=== PATIENT | female | born 2000 | race Hispanic/Latino ===

== ENCOUNTER 2021-05-31 14:28 | Emergency (ER) | payer MEDICAID ==
[2021-05-31 16:49] VITALS: BP 117/82
--- NOTE | 2021-05-31 17:03 | Event Note ---
ED Screening Note Date of service: 05/31/21 Time: 17:01 ED Screening Note: Patient presents to the ER today with complaints of syncope. Patient states that she passed out twice since yesterday. Presyncopal symptoms include dizziness, lightheadedness and generalized weakness. She reports periumbilical pain, mainly after her syncopal episodes as well as low back pain. Patient states that she recently returned from [place] 2 days ago. She states that her symptoms started in [place] 2 days before her flight to the she did pass out once in [place] with did not get evaluated. She states that she had been markable for 3 months. Patient reports no chest pain, shortness of breath, fever or chills. Her last menstrual cycle was in April 2021. She is not currently on any control. She denies any UTI symptoms. She denies any significant past medical history. This initial assessment/diagnostic orders/clinical plan/treatment(s) is/are subject to change based on patients health status, clinical progression and re- assessment by fellow clinical providers in the ED. Further treatment and workup at subsequent clinical providers discretion. Patient/guardian urged not to elope from the ED as their condition may be serious if not clinically assessed and managed. Initial orders include: Syncope order set
[2021-05-31 17:32] LABS: Bilirubin,Urine NEG (Negative); Blood,Urine NEG (Negative); Color,Urine Yellow (Yellow); Mucus,Urine FEW /HPF; Protein,Urine <15 mg/dL mg/dL (Negative)
[2021-05-31 17:42] LABS: Basophils % (Auto) 0.3 % (0.0-1.8); Eosinophils # (Auto) 0.1 K/mm3 (0.0-0.4); Eosinophils % (Auto) 1.6 % (0.0-4.3); Hematocrit 38.3 % (30.3-42.9); Hemoglobin 12.5 gm/dl (10.1-14.3); Lymphocytes # (Auto) 2.6 K/mm3 (1.2-5.4); Lymphocytes % (Auto) 34.1 % (13.4-35.0); Mean Corpuscular HGB Conc 33 % (30-34); Mean Corpuscular Volume 73 fl (79-97); Monocytes # (Auto) 0.8 K/mm3 (0.0-0.8); Monocytes % (Auto) 10.1 % (0.0-7.3); Platelet Count 313 K/mm3 (140-440); Red Blood Count 5.26 M/mm3 (3.65-5.03); Red Cell Distribution Width 18.5 % (13.2-15.2)
[2021-05-31 18:02] LABS: Alanine Aminotransferase 37 units/L (7-56); Albumin 3.9 g/dL (3.9-5); Blood Urea Nitrogen 7 mg/dL (7-17); Calcium 10.1 mg/dL (8.4-10.2); Hemolysis Index 6
[2021-05-31 18:06] LABS: BUN/Creatinine Ratio 18
[2021-05-31] MEDS ORDERED: FAMOTIDINE 20 MG/2 ML INJ IV ONE (21:27)
[2021-05-31] MEDS ORDERED: ONDANSETRON 4 MG/2 ML INJ IV ONE (21:27)
[2021-05-31] MEDS ORDERED: SODIUM CHLORIDE 0.9% 1000 ML 1,000 ML IV ONE (21:27)
--- NOTE | 2021-05-31 22:08 | XRay Report ---
CHEST 2 VIEWS INDICATION / CLINICAL INFORMATION: syncope, weakness. COMPARISON: None available. FINDINGS: SUPPORT DEVICES: None. HEART / MEDIASTINUM: No significant abnormality. LUNGS / PLEURA: No significant pulmonary or pleural abnormality. No pneumothorax. ADDITIONAL FINDINGS: No significant additional findings. IMPRESSION: 1. No acute findings. Signer Name: Michael Bustillo MD Signed: 05/31/2021 10:03 PM Workstation Name: [id number]
[2021-05-31 22:25] LABS: INR 0.95 (0.87-1.13)
[2021-05-31 22:26] LABS: Partial Thromboplastin Time 36.2 Sec. (24.2-36.6)
[2021-05-31] MEDS ORDERED: DICYCLOMINE 20 MG TAB PO ONE (22:28)
[2021-05-31] MEDS ORDERED: diphenhydrAMINE 50 MG/ML VIAL IV ONE (22:28)
--- NOTE | 2021-05-31 23:58 | Cat Scan Report ---
CT head without contrast INDICATION : Syncopal episode. TECHNIQUE: Axial imaging performed from the skull apex through the skull base without the use of con trast. All CT scans at this location are performed using CT dose reduction for ALARA by means of aut omated exposure control. COMPARISON: None FINDINGS: Parenchyma: No mass, stroke or hemorrhage. Ventricles: Ventricles are normal in size and appear symmetric. Soft tissues: Soft tissues including the orbits appear normal. Bones: No acute osseous abnormality. Sinuses: Sinuses and mastoid air cells are clear. IMPRESSION: No acute abnormality. Signer Name: Cesar Lopez MD Signed: 05/31/2021 11:54 PM Workstation Name: [id number]
--- NOTE | 2021-06-01 00:02 | Cat Scan Report ---
CTA CHEST WITH CONTRAST INDICATION / CLINICAL INFORMATION: Epigastric abdominal pain with elevated D-dimer. TECHNIQUE: Axial CT images were obtained through the chest after injection of Omnipaque 350, 100 cc I V contrast. 3 plane MIP and/or 3D reconstructions were produced. All CT scans at this location are pe rformed using CT dose reduction for ALARA by means of automated exposure control. COMPARISON: None available. FINDINGS: PULMONARY ARTERIES: No pulmonary emboli. THORACIC AORTA: No significant abnormality. HEART: No significant abnormality. CORONARY ARTERY CALCIFICATION: None. MEDIASTINUM / AV: No significant abnormality. PLEURA: No pleural effusion. No pneumothorax. LUNGS: No acute air space or interstitial disease. ADDITIONAL FINDINGS: None. UPPER ABDOMEN: No acute findings. SKELETAL STRUCTURES: No significant osseous abnormality. IMPRESSION: 1. No CT evidence for pulmonary embolism. 2. Negative for pneumonia. Signer Name: Cesar Lopez MD Signed: 05/31/2021 11:57 PM Workstation Name: [id number]
--- NOTE | 2021-06-01 00:06 | Cat Scan Report ---
CT ABDOMEN AND PELVIS WITH CONTRAST INDICATION / CLINICAL INFORMATION: Epigastric abdominal pain. TECHNIQUE: Axial CT images were obtained through the abdomen and pelvis after Omnipaque 350, 100 cc I V contrast. All CT scans at this location are performed using CT dose reduction for ALARA by means o f automated exposure control. COMPARISON: None available. FINDINGS: LOWER CHEST: No significant abnormality. LIVER: No significant abnormality. GALLBLADDER: No significant abnormality. BILE DUCTS: No significant abnormality. PANCREAS: No significant abnormality. SPLEEN: No significant abnormality. ADRENALS: No significant abnormality. RIGHT KIDNEY / URETER: No significant abnormality. LEFT KIDNEY / URETER: No significant abnormality. STOMACH / SMALL BOWEL: No significant abnormality. COLON: No significant abnormality. APPENDIX: No significant abnormality. PERITONEUM: No free fluid. No free air. No fluid collection. LYMPH NODES: No significant adenopathy. VASCULAR STRUCTURES: No significant abnormality. URINARY BLADDER: No significant abnormality. REPRODUCTIVE ORGANS: Small physiologic cyst left ovary. ADDITIONAL FINDINGS: None. SKELETAL SYSTEM: No significant abnormality. IMPRESSION: Negative for obstruction or localized inflammation. Signer Name: Cesar Lopez MD Signed: 06/01/2021 12:01 AM Workstation Name: [id number]
--- NOTE | 2021-06-01 00:42 | Emergency Department Report ---
ED Syncope HPI - General Chief Complaint: Syncope Stated Complaint: SYNCOPE EPISODE AT HOME Time Seen by Provider: 05/31/21 21:37 Source: patient, RN notes reviewed Exam Limitations: no limitations - History of Present Illness Initial Comments: This is a 21-year-old female nontoxic, well nourished in appearance, no acute signs of distress presents to the ED with c/o of dizziness, generalized weakness, and syncopal episode x 1 that occurred today. Patient stated symptoms has been intermittent since she was in [place] for the past 3 months. Patient returned from [place] 2 days ago. Patient stated has had also 1 episode yesterday. Stated has SOB and chest pain with abdominal pains during presyncopal episodes. Patient denies any headache or head trauma. Patient stated the dizziness is worsened with position change. Patient denies any numbness, tingling, headache, stiff neck, chest pain, shortness of breathe, numbness or tingling. Denies any visual changes or blurry vision. Denies any drug allergies. Timing/Prior Episodes: single episode today, recent history Precipitating Factors: Positive: lightheadedness. Negative: blurred vision, confusion, diaphoresis, injury, nausea, pain, recent head trauma, rapid heart beat Context: sitting, standing Loss of Consciousness: brief (seconds) Current Symptoms: back to normal. denies: blurred vision, chest pain, diaphoresis, dizziness, headache, injury, lightheadedness, loss of bladder con trol, loss of bowel control, motionless, nausea, pale, shallow/rapid breathing, weak/absent pulse, weakness - Related Data Allergies/Adverse Reactions: Allergies No Known Allergies Allergy (Unverified 05/31/21 16:49) Home Medications: Ambulatory Orders Meclizine [Antivert] 25 mg PO DAILY PRN #12 tablet 06/01/21 ED Review of Systems ROS: Stated complaint: SYNCOPE EPISODE AT HOME Other details as noted in HPI Comment: All other systems reviewed and negative Constitutional: denies: chills, fever Eyes: denies: eye pain, eye discharge, vision change ENT: denies: ear pain, throat pain Respiratory: denies: cough, shortness of breath, wheezing Cardiovascular: denies: chest pain, palpitations Endocrine: no symptoms reported Gastrointestinal: denies: abdominal pain, nausea, diarrhea Genitourinary: denies: urgency, dysuria, discharge Musculoskeletal: denies: back pain, joint swelling, arthralgia Skin: denies: rash, lesions Neurological: vertigo. denies: headache, weakness, numbness, paresthesias, confusion, abnormal gait Psychiatric: denies: anxiety, depression Hematological/Lymphatic: denies: easy bleeding, easy bruising ED Past Medical Hx - Past Medical History Previous Medical History?: No Additional medical history: denies - Surgical History Past Surgical History?: No Additional Surgical History: denies - Medications Home Medications: Home Medications Medication Instructions Recorded Confirmed Last Taken Type Meclizine [Antivert] 25 mg PO DAILY PRN #12 tablet 06/01/21 Unknown Rx ED Physical Exam - General Limitations: No Limitations General appearance: alert, in no apparent distress - Head Head exam: Present: atraumatic, normocephalic - Eye Eye exam: Present: normal appearance, PERRL, EOMI - ENT ENT exam: Present: normal exam, normal orophraynx - Neck Neck exam: Present: normal inspection, full ROM. Absent: tenderness, meningismus, lymphadenopathy - Respiratory Respiratory exam: Present: normal lung sounds bilaterally. Absent: respiratory distress, wheezes, rales, rhonchi, stridor, chest wall tenderness, accessory muscle use, decreased breath sounds, prolonged expiratory - Cardiovascular Cardiovascular Exam: Present: regular rate, normal rhythm, normal heart sounds. Absent: bradycardia, tachycardia, irregular rhythm, systolic murmur, diastolic murmur, rubs, gallop - GI/Abdominal GI/Abdominal exam: Present: soft, tenderness (upper abdominal area), normal bowel sounds. Absent: distended, guarding, rebound, rigid, diminished bowel sounds - Extremities Exam Extremities exam: Present: normal inspection, full ROM, normal capillary refill. Absent: tenderness, pedal edema, joint swelling, calf tenderness - Back Exam Back exam: Present: normal inspection, full ROM. Absent: tenderness, CVA tenderness (R), CVA tenderness (L), muscle spasm, paraspinal tenderness, vertebral tenderness, rash noted - Neurological Exam Neurological exam: Present: alert, oriented X3, normal gait - Expanded Neurological Exam Expanded Patient oriented to: Present: person, place, time Cranial nerves: EOM's Intact: Normal, Facial Sensation: Normal Cerebellar function: Finger to Nose: Normal Upper motor neuron: Pronator Drift: Normal, Sensory Extinction: Normal Motor strength exam: RUE: 5, LUE: 5, RLE: 5, LLE: 5 Best Eye Response ([place]): (4) open spontaneously Best Motor Response (Davy): (6) obeys commands Best Verbal Response (Davy): (5) oriented Davy Total: 15 - Psychiatric Psychiatric exam: Present: normal affect, normal mood - Skin Skin exam: Present: warm, dry, intact, normal color. Absent: rash - Other Other exam information: No carotid bruit. No jugular vein distention. ED Course Vital Signs 05/31/21 16:48 Temperature 98.4 F Pulse Rate 97 H Respiratory 16 Rate Blood Pressure 117/82 O2 Sat by Pulse 99 Oximetry - Reevaluation(s) Reevaluation #1: 06/01/21 00:44 Patient is speaking in full sentences with no signs of distress noted. ED Medical Decision Making - Lab Data Result diagrams: 05/31/21 17:26 05/31/21 17:26 Lab Results 05/31/21 05/31/21 05/31/21 Range/Units 17:26 17:26 17:26 WBC 7.7 (4.5-11.0) K/mm3 RBC 5.26 H (3.65-5.03) M/mm3 Hgb 12.5 (10.1-14.3) gm/dl Hct 38.3 (30.3-42.9) % MCV 73 L (79-97) fl MCH 24 L (28-32) pg MCHC 33 (30-34) % RDW 18.5 H (13.2-15.2) % Plt Count 313 (140-440) K/mm3 Lymph % (Auto) 34.1 (13.4-35.0) % [place] % (Auto) 10.1 H (0.0-7.3) % Eos % (Auto) 1.6 (0.0-4.3) % Baso % (Auto) 0.3 (0.0-1.8) % Lymph # (Auto) 2.6 (1.2-5.4) K/mm3 [place] # (Auto) 0.8 (0.0-0.8) K/mm3 Eos # (Auto) 0.1 (0.0-0.4) K/mm3 Baso # (Auto) 0.0 (0.0-0.1) K/mm3 Seg Neutrophils % 53.9 (40.0-70.0) % Seg Neutrophils # 4.1 (1.8-7.7) K/mm3 PT (12.2-14.9) Sec. INR (0.87-1.13) APTT (24.2-36.6) Sec. D-Dimer (0-234) ng/mlDDU Sodium 139 (137-145) mmol/L Potassium 4.0 (3.6-5.0) mmol/L Chloride 102.5 (98-107) mmol/L Carbon Dioxide 22 (22-30) mmol/L Anion Gap 19 mmol/L BUN 7 (7-17) mg/dL Creatinine 0.4 L (0.6-1.2) mg/dL Estimated GFR > 60 ml/min BUN/Creatinine Ratio 18 % Glucose 92 (65-100) mg/dL Calcium 10.1 (8.4-10.2) mg/dL Magnesium 2.20 (1.7-2.3) mg/dL Total Bilirubin 0.30 (0.1-1.2) mg/dL AST 16 (5-40) units/L ALT 37 (7-56) units/L Alkaline Phosphatase 99 (35-129) units/L Troponin T < 0.010 (0.00-0.029) ng/mL Total Protein 8.6 H (6.3-8.2) g/dL Albumin 3.9 (3.9-5) g/dL Albumin/Globulin Ratio 0.8 % HCG, Qual Negative (Negative) Urine Color (Yellow) Urine Turbidity (Clear) Urine pH (5.0-7.0) Ur Specific Veteran (1.003-1.030) Urine Protein (Negative) mg/dL Urine Glucose (UA) (Negative) mg/dL Urine Ketones (Negative) mg/dL Urine Blood (Negative) Urine Nitrite (Negative) Urine Bilirubin (Negative) Urine Urobilinogen (<2.0) mg/dL Ur Leukocyte Esterase (Negative) Urine WBC (Auto) (0.0-6.0) /HPF Urine RBC (Auto) (0.0-6.0) /HPF U Epithel Cells (Auto) (0-13.0) /HPF Urine Mucus /HPF 09/10/2005/31/21 05/31/21 Range/Units 22:00 22:00 Unknown WBC (4.5-11.0) K/mm3 RBC (3.65-5.03) M/mm3 Hgb (10.1-14.3) gm/dl Hct (30.3-42.9) % MCV (79-97) fl MCH (28-32) pg MCHC (30-34) % RDW (13.2-15.2) % Plt Count (140-440) K/mm3 Lymph % (Auto) (13.4-35.0) % [place] % (Auto) (0.0-7.3) % Eos % (Auto) (0.0-4.3) % Baso % (Auto) (0.0-1.8) % Lymph # (Auto) (1.2-5.4) K/mm3 [place] # (Auto) (0.0-0.8) K/mm3 Eos # (Auto) (0.0-0.4) K/mm3 Baso # (Auto) (0.0-0.1) K/mm3 Seg Neutrophils % (40.0-70.0) % Seg Neutrophils # (1.8-7.7) K/mm3 PT 13.3 (12.2-14.9) Sec. INR 0.95 (0.87-1.13) APTT 36.2 (24.2-36.6) Sec. D-Dimer 352.35 H (0-234) ng/mlDDU Sodium (137-145) mmol/L Potassium (3.6-5.0) mmol/L Chloride (98-107) mmol/L Carbon Dioxide (22-30) mmol/L Anion Gap mmol/L BUN (7-17) mg/dL Creatinine (0.6-1.2) mg/dL Estimated GFR ml/min BUN/Creatinine Ratio % Glucose (65-100) mg/dL Calcium (8.4-10.2) mg/dL Magnesium 2.10 (1.7-2.3) mg/dL Total Bilirubin (0.1-1.2) mg/dL AST (5-40) units/L ALT (7-56) units/L Alkaline Phosphatase (35-129) units/L Troponin T < 0.010 (0.00-0.029) ng/mL Total Protein (6.3-8.2) g/dL Albumin (3.9-5) g/dL Albumin/Globulin Ratio % HCG, Qual (Negative) Urine Color Yellow (Yellow) Urine Turbidity Clear (Clear) Urine pH 6.0 (5.0-7.0) Ur Specific Veteran 1.016 (1.003-1.030) Urine Protein <15 mg/dl (Negative) mg/dL Urine Glucose (UA) Neg (Negative) mg/dL Urine Ketones Neg (Negative) mg/dL Urine Blood Neg (Negative) Urine Nitrite Neg (Negative) Urine Bilirubin Neg (Negative) Urine Urobilinogen 2.0 (<2.0) mg/dL Ur Leukocyte Esterase Tr (Negative) Urine WBC (Auto) 1.0 (0.0-6.0) /HPF Urine RBC (Auto) 1.0 (0.0-6.0) /HPF U Epithel Cells (Auto) 2.0 (0-13.0) /HPF Urine Mucus Few /HPF - EKG Data 06/01/21 00:48 Normal sinus rhythm at [address] or T wave abnormalities. Reviewed and signed by . - Radiology Data [facility] [address] [place] [address] Cat Scan Report Signed Patient: MOON RUIZ MR#: [id number] [birth year] : 2000 Acct:[id number] Age/Sex: 21 / F ADM Date: 05/31/21 Loc: ED Attending Dr: Ordering Physician: GRACE ENCISO NP Date of Service: 05/31/21 Procedure(s): CT angio chest Accession Number(s): [id number] cc: GRACE ENCISO NP CTA CHEST WITH CONTRAST INDICATION / CLINICAL INFORMATION: Epigastric abdominal pain with elevated D-dimer. TECHNIQUE: Axial CT images were obtained through the chest after injection of Omnipaque 350, 100 cc IV contrast. 3 plane MIP and/or 3D reconstructions were produced. All CT scans at this location are performed using CT dose reduction for ALARA by means of automated exposure control. COMPARISON: None available. FINDINGS: PULMONARY ARTERIES: No pulmonary emboli. THORACIC AORTA: No significant abnormality. HEART: No significant abnormality. CORONARY ARTERY CALCIFICATION: None. MEDIASTINUM / AV: No significant abnormality. PLEURA: No pleural effusion. No pneumothorax. LUNGS: No acute air space or interstitial disease. ADDITIONAL FINDINGS: None. UPPER ABDOMEN: No acute findings. SKELETAL STRUCTURES: No significant osseous abnormality. IMPRESSION: 1. No CT evidence for pulmonary embolism. 2. Negative for pneumonia. Signer Name: Cesar Lopez MD Signed: 05/31/2021 11:57 PM Workstation Name: [id number] Transcribed By: ES Dictated By: Cesar Lopez MD Electronically Authenticated By: Cesar Lopez MD Signed Date/Time: 05/31/212356 DD/ 54 TD/TT: [facility] [address] [place] [address] Cat Scan Report Signed Patient: MOON RUIZ MR#: [id number] [birth year] : 2000 Acct:[id number] Age/Sex: 21 / F ADM Date: 05/31/21 Loc: ED Attending Dr: Ordering Physician: GRACE ENCISO NP Date of Service: 05/31/21 Procedure(s): CT abdomen pelvis w con Accession Number(s): [id number] cc: GRACE ENCISO NP CT ABDOMEN AND PELVIS WITH CONTRAST INDICATION / CLINICAL INFORMATION: Epigastric abdominal pain. TECHNIQUE: Axial CT images were obtained through the abdomen and pelvis after Omnipaque 350, 100 cc IV contrast. All CT scans at this location are performed using CT dose reduction for ALARA by means of automated exposure control. COMPARISON: None available. FINDINGS: LOWER CHEST: No significant abnormality. LIVER: No significant abnormality. GALLBLADDER: No significant abnormality. BILE DUCTS: No significant abnormality. PANCREAS: No significant abnormality. SPLEEN: No significant abnormality. ADRENALS: No significant abnormality. RIGHT KIDNEY / URETER: No significant abnormality. LEFT KIDNEY / URETER: No significant abnormality. STOMACH / SMALL BOWEL: No significant abnormality. COLON: No significant abnormality. APPENDIX: No significant abnormality. PERITONEUM: No free fluid. No free air. No fluid collection. LYMPH NODES: No significant adenopathy. VASCULAR STRUCTURES: No significant abnormality. URINARY BLADDER: No significant abnormality. REPRODUCTIVE ORGANS: Small physiologic cyst left ovary. ADDITIONAL FINDINGS: None. SKELETAL SYSTEM: No significant abnormality. IMPRESSION: Negative for obstruction or localized inflammation. Signer Name: Cesar Lopez MD Signed: 06/01/2021 12:01 AM Workstation Name: [id number] Transcribed By: DOLORES Dictated By: Cesar Lopez MD Electronically Authenticated By: Cesar Lopez MD Signed Date/Time: 06/01/212356 DD/ TD/TT: [address] [address] Cat Scan Report Signed Patient: MOON RUIZ MR#: [id number] [birth year] : 2000 Acct:[id number] Age/Sex: 21 / F ADM Date: 05/31/21 Loc: ED Attending Dr: Ordering Physician: GRACE ENCISO NP Date of Service: 05/31/21 Procedure(s): CT head/brain wo con Accession Number(s): [id number] cc: GRACE ENCISO NP CT head without contrast INDICATION : Syncopal episode. TECHNIQUE: Axial imaging performed from the skull apex through the skull base without the use of contrast. All CT scans at this location are performed using CT dose reduction for ALARA by means of automated exposure control. COMPARISON: None FINDINGS: Parenchyma: No mass, stroke or hemorrhage. Ventricles: Ventricles are normal in size and appear symmetric. Soft tissues: Soft tissues including the orbits appear normal. Bones: No acute osseous abnormality. Sinuses: Sinuses and mastoid air cells are clear. IMPRESSION: No acute abnormality. Signer Name: Cesar Lopez MD Signed: 05/31/2021 11:54 PM Workstation Name: [id number] Transcribed By: DOLORES Dictated By: Cesar Lopez MD Electronically Authenticated By: Cesar Lopez MD Signed Date/Time: 05/31/212353 DD/ 49 TD/TT: [address] [address] XRay Report Signed Patient: MOON RUIZ MR#: [id number] [birth year] : 2000 Acct:[id number] Age/Sex: 21 / F ADM Date: 05/31/21 Loc: ED Attending Dr: Clarence lopez Physician: BEKAH MEJIA Date of Service: 05/31/21 Procedure(s): XR chest routine 2V Accession Number(s): [id number] cc: BEKAH MEJIA Fluoro Time In Minutes: CHEST 2 VIEWS INDICATION / CLINICAL INFORMATION: syncope, weakness. COMPARISON: None available. FINDINGS: SUPPORT DEVICES: None. HEART / MEDIASTINUM: No significant abnormality. LUNGS / PLEURA: No significant pulmonary or pleural abnormality. No pneumothorax. ADDITIONAL FINDINGS: No significant additional findings. IMPRESSION: 1. No acute findings. Signer Name: Michael Bustillo MD Signed: 05/31/2021 10:03 PM Workstation Name: [id number] Transcribed By: SB Dictated By: MICHAEL BUSTILLO MD Electronically Authenticated By: MICHAEL BUSTILLO MD Signed Date/Time: 05/31/212202 DD/ 02 TD/TT: - Medical Decision Making This is a 21-year-old female that presents with dizziness, syncope, elevated d- dimmer, and abdominal pains. Patient is stable and was examined by me. EKG is normal sinus rhythm with no ST abnormalities. Labs are unremarkable. Urine obtained. Orthostatic vital signs obtained and within normal limits. Patient received 1 L of normal saline which she stated his symptoms of dizziness has subsided and resolved. Patient is neurologically stable. Patient is notified of the imagining results with no questions noted by the patient. Patient was instructed to Follow-up with a primary care doctor in 3-5 days or if symptoms worsen and continue return to emergency room as soon as possible. At time of discharge, the patient does not seem toxic or ill in appearance. No acute signs of distress noted. Patient agrees to discharge treatment plan of care. No f urther questions noted by the patient. Critical care attestation.: If time is entered above; I have spent that time in minutes in the direct care of this critically ill patient, excluding procedure time. ED Disposition Clinical Impression: Syncopal episodes, Dizziness, Abdominal pain of unknown cause, Elevated d-dimer Disposition: HOME / SELF CARE / HOMELESS Is pt being admited?: No Does the pt Need Aspirin: No Condition: Stable Instructions: Abdominal Pain, Adult, Dizziness, Giff-kg-Xyen, Syncope (ED) Additional Instructions: Follow-up with a primary care doctor in 3-5 days or if symptoms worsen and continue return to emergency room as soon as possible. Prescriptions: Meclizine [Antivert] 25 mg PO DAILY PRN #12 tablet PRN Reason: Vertigo Referrals: NORAH LIVINGSTON MD [Primary Care Provider] - 3-5 Days PRIMARY CAREMD [Referring] - 3-5 Days JACOB PENN MD [Staff Physician] - 3-5 Days Forms: Work/School Release Form(ED) Time of Disposition: 00:51
--- NOTE | 2021-06-01 10:14 | Electrocardiograph Report ---
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
== END 2021-06-01 01:00 | disposition home or self-care (01) ==
LOC: ED 14:28
DX: R55 Syncope and collapse (principal); R42 Dizziness and giddiness; R10.9 Unspecified abdominal pain; R79.1 Abnormal coagulation profile
CPT/HCPCS: 36415; 70450; 71046; 71275; 74177; 80053; 81001; 83735; 84484; 84703; 85025; 85379; 85610; 85730; 93005; 96361; 96374; 96375; 99284; J1200; J2405; J7030; Q9967

== ENCOUNTER 2021-07-28 18:40 | Emergency (ER) | payer MEDICAID ==
[2021-07-28] MEDS ORDERED: NEOMY 3.5 MG/BACIT 400 UNITS/POLY B 5000 UNITS/GM OINT PACKET TP ONE (19:02)
[2021-07-28] MEDS ORDERED: TETANUS,DIPH,PERTUSS(ACELL) VACCINE 0.5 ML SYRINGE IM ONE (19:02)
--- NOTE | 2021-07-28 19:13 | Emergency Department Report ---
- General Chief Complaint: Wound/Laceration Stated Complaint: LEFT HAND INJURY Time Seen by Provider: 07/28/21 18:59 Source: patient Mode of arrival: Ambulatory Limitations: No Limitations - History of Present Illness Initial Comments: Patient is a 21-year-old female presents emergency with complaints of a left hand injury that occurred prior to arrival. Patient states that she was helping to move a dresser. She states that the person on the other side let go of the dresser and that she had to take all of the way onto her hand and when she pulled away it cut the hand. She is unsure of her last tetanus immunization. She states that she still able to move the digits in the hand. She denies any numbness or weakness. No past medical history. No allergies to medications. - Related Data Previous Rx's Medication Instructions Recorded Last Taken Type Meclizine [Antivert] 25 mg PO DAILY PRN #12 tablet 06/01/21 Unknown Rx Mupirocin [Bactroban 2% OINT] 1 applic TP TID #1 tube 07/28/21 Unknown Rx cephALEXin [Keflex] 500 mg PO QID 7 Days #28 cap 07/28/21 Unknown Rx Allergies Allergy/AdvReac Type Severity Reaction Status Date / Time No Known Allergies Allergy Unverified 05/31/21 16:49 ED Review of Systems ROS: Stated complaint: LEFT HAND INJURY Other details as noted in HPI Comment: All other systems reviewed and negative ED Past Medical Hx - Past Medical History Previous Medical History?: No Additional medical history: denies - Surgical History Past Surgical History?: No Additional Surgical History: denies - Medications Home Medications: Home Medications Medication Instructions Recorded Confirmed Last Taken Type Meclizine [Antivert] 25 mg PO DAILY PRN #12 tablet 06/01/21 Unknown Rx Mupirocin [Bactroban 2% OINT] 1 applic TP TID #1 tube 07/28/21 Unknown Rx cephALEXin [Keflex] 500 mg PO QID 7 Days #28 cap 07/28/21 Unknown Rx ED Physical Exam - General Limitations: No Limitations General appearance: alert, in no apparent distress - Head Head exam: Present: atraumatic, normocephalic - Eye Eye exam: Present: normal appearance - ENT ENT exam: Present: mucous membranes moist - Extremities Exam Extremities exam: Present: other (skin avulsion present to the palmar surface of the left hand of the ring finger and middle finger, mild ttp of the digits, FROM of the wrist, hand, and digits, neurovascularly intact) - Neurological Exam Neurological exam: Present: alert, oriented X3 - Psychiatric Psychiatric exam: Present: normal affect, normal mood - Skin Skin exam: Present: warm, dry ED Course Vital Signs 07/28/21 07/28/21 07/28/21 18:45 19:06 20:25 Temperature 98.0 F Pulse Rate 102 H 107 H 112 H Respiratory 18 17 Rate Blood Pressure 130/87 196/123 139/85 O2 Sat by Pulse 100 97 99 Oximetry ED Medical Decision Making - Radiology Data Radiology results: report reviewed Ordering Physician: BEKAH OTOOLE Date of Service: 07/28/21 Procedure(s): XR hand 3+V RT Accession Number(s): [id number] cc: BEKAH OTOOLE Fluoro Time In Minutes: RIGHT HAND 3 VIEW(S) INDICATION / CLINICAL INFORMATION: smashed hand while moving dresser, skin avulsion COMPARISON: None available. FINDINGS: BONES / JOINT(S): No acute fracture or subluxation. No significant arthritis. SOFT TISSUES: No significant abnormality. ADDITIONAL FINDINGS: None. Signer Name: Hector Hale MD Signed: 07/28/2021 7:29 PM Workstation Name: [id number] Transcribed By: SS Dictated By: Hector Hale MD Electronically Authenticated By: Hector Hale MD Signed Date/Time: 07/28/211928 DD/ 26 TD/TT: Print - Medical Decision Making Patient is a 21-year-old female presents emergency with complaints of a left hand injury that occurred prior to arrival. Patient states that she was helping to move a dresser. She states that the person on the other side let go of the dresser and that she had to take all of the way onto her hand and when she pulled away it cut the hand. She is unsure of her last tetanus immunization. She states that she still able to move the digits in the hand. She denies any numbness or weakness. No past medical history. No allergies to medications. on exam:skin avulsion present to the palmar surface of the left hand of the ring finger and middle finger, mild ttp of the digits, FROM of the wrist, hand, and digits, neurovascularly intact. X-ray right hand: BONES / JOINT(S): No acute fracture or subluxation. No significant arthritis. SOFT TISSUES: No significant abnormality. ADDITIONAL FINDINGS: None. Unable to repair, there is skin avulsion present, no muscle or tendon involvement, only involves the skin layer, no foreign bodies. Wound care performed by nurse and antibiotic ointment and nonstick dressing placed. Discussed all results with patient. Advised patient Please use medication as prescribed. Please keep area clean, dry, covered. Wash with antibacterial soap and water pat dry. No hot tub, no pool. Showering is fine. Follow-up with a primary care doctor to have area reexamined. Return to emergency room immediately for any new or worsening symptoms. Critical care attestation.: If time is entered above; I have spent that time in minutes in the direct care of this critically ill patient, excluding procedure time. ED Disposition Clinical Impression: Skin avulsion Disposition: HOME / SELF CARE / HOMELESS Is pt being admited?: No Does the pt Need Aspirin: No Condition: Stable Instructions: Deep Skin Avulsion Additional Instructions: Please use medication as prescribed. Please keep area clean, dry, covered. Wash with antibacterial soap and water pat dry. No hot tub, no pool. Showering is fine. Follow-up with a primary care doctor to have area reexamined. Return to emergency room immediately for any new or worsening symptoms. Prescriptions: Mupirocin [Bactroban 2% OINT] 1 applic TP TID #1 tube cephALEXin [Keflex] 500 mg PO QID 7 Days #28 cap Referrals: JACOB PENN MD [Staff Physician] - 3-5 Days [facility] [Provider Group] - 3-5 Days Forms: Work/School Release Form(ED) Time of Disposition: 20:00 Print Language: [place]
--- NOTE | 2021-07-28 19:33 | XRay Report ---
RIGHT HAND 3 VIEW(S) INDICATION / CLINICAL INFORMATION: smashed hand while moving dresser, skin avulsion COMPARISON: None available. FINDINGS: BONES / JOINT(S): No acute fracture or subluxation. No significant arthritis. SOFT TISSUES: No significant abnormality. ADDITIONAL FINDINGS: None. Signer Name: Hector Hale MD Signed: 07/28/2021 7:29 PM Workstation Name: [id number]
[2021-07-28 20:28] VITALS: BP 139/85
== END 2021-07-28 20:42 | disposition home or self-care (01) ==
LOC: ED 18:40
DX: S61.402A Unspecified open wound of left hand, initial encounter (principal); X58.XXXA Exposure to other specified factors, initial encounter; Y93.89 Activity, other specified; Y92.89 Other specified places as the place of occurrence of the external cause; Y99.8 Other external cause status
CPT/HCPCS: 73130; 90471; 90715; 99283; A6250

== ENCOUNTER 2021-07-29 01:54 | Emergency (ER) | payer MEDICAID ==
[2021-07-29] MEDS ORDERED: SODIUM CHLORIDE 0.9% 1000 ML 1,000 ML IV ONE (02:33)
[2021-07-29 03:53] LABS: Basophils % (Auto) 0.5 % (0.0-1.8); Eosinophils # (Auto) 0.2 K/mm3 (0.0-0.4); Eosinophils % (Auto) 4.2 % (0.0-4.3); Hematocrit 34.1 % (30.3-42.9); Hemoglobin 11.1 gm/dl (10.1-14.3); Lymphocytes # (Auto) 1.2 K/mm3 (1.2-5.4); Lymphocytes % (Auto) 21.8 % (13.4-35.0); Mean Corpuscular HGB Conc 33 % (30-34); Mean Corpuscular Volume 73 fl (79-97); Monocytes # (Auto) 0.4 K/mm3 (0.0-0.8); Monocytes % (Auto) 8.1 % (0.0-7.3); Platelet Count 294 K/mm3 (140-440); Red Blood Count 4.65 M/mm3 (3.65-5.03); Red Cell Distribution Width 16.8 % (13.2-15.2)
[2021-07-29 04:50] LABS: Alanine Aminotransferase 12 units/L (7-56); Blood Urea Nitrogen 9 mg/dL (7-17); Calcium 8.5 mg/dL (8.4-10.2); Hemolysis Index 6
[2021-07-29 04:52] LABS: BUN/Creatinine Ratio 23
[2021-07-29 04:59] LABS: Bilirubin,Urine NEG (Negative); Blood,Urine LG (Negative); Color,Urine Yellow (Yellow); Protein,Urine <15 mg/dL mg/dL (Negative)
--- NOTE | 2021-07-29 05:35 | Emergency Department Report ---
ED Dizziness HPI - General Chief Complaint: Dizziness Stated Complaint: LIGHT HEADED Source: patient Mode of arrival: Ambulatory Limitations: No Limitations - History of Present Illness MD Complaint: lightheadedness, near syncope, other (right hand laceration and heavy vaginal bleeding) -: Sudden, hour(s) (2) Timing: sudden onset, constant, waxing/waning Description: "room spinning", lightheadedness, near-syncope History of Same: No History of Trauma: No Severity: mild Improves With: rest Worsens With: movement Associated Symptoms: denies other symptoms, malaise. denies: ataxia, chest pain, cough, diaphoresis, fever/chills, loss of appetite, rash, seizure, shortness of breath, syncope, weakness, other - Related Data Previous Rx's Medication Instructions Recorded Last Taken Type Meclizine [Antivert] 25 mg PO DAILY PRN #12 tablet 06/01/21 Unknown Rx Mupirocin [Bactroban 2% OINT] 1 applic TP TID #1 tube 07/28/21 Unknown Rx cephALEXin [Keflex] 500 mg PO QID 7 Days #28 cap 07/28/21 Unknown Rx Allergies Allergy/AdvReac Type Severity Reaction Status Date / Time No Known Allergies Allergy Unverified 05/31/21 16:49 ED Review of Systems ROS: Stated complaint: LIGHT HEADED Other details as noted in HPI Constitutional: denies: chills, fever, weakness Eyes: denies: eye pain, eye discharge, vision change ENT: denies: ear pain, throat pain, congestion Respiratory: denies: cough, shortness of breath, wheezing Cardiovascular: other (lightheadedness). denies: chest pain, palpitations Endocrine: no symptoms reported Gastrointestinal: denies: abdominal pain, nausea, vomiting, diarrhea Genitourinary: denies: urgency, dysuria, discharge Musculoskeletal: denies: back pain, joint swelling, arthralgia Skin: denies: rash, lesions Neurological: other (lightheadedness). denies: headache, weakness, paresthesias Psychiatric: anxiety. denies: depression Hematological/Lymphatic: denies: easy bleeding, easy bruising ED Past Medical Hx - Past Medical History Previous Medical History?: No Additional medical history: denies - Surgical History Past Surgical History?: No Additional Surgical History: denies - Medications Home Medications: Home Medications Medication Instructions Recorded Confirmed Last Taken Type Meclizine [Antivert] 25 mg PO DAILY PRN #12 tablet 06/01/21 Unknown Rx Mupirocin [Bactroban 2% OINT] 1 applic TP TID #1 tube 07/28/21 Unknown Rx cephALEXin [Keflex] 500 mg PO QID 7 Days #28 cap 07/28/21 Unknown Rx ED Physical Exam - General Limitations: No Limitations General appearance: alert, in no apparent distress - Head Head exam: Present: atraumatic, normocephalic, normal inspection - Eye Eye exam: Present: normal appearance, PERRL, EOMI Pupils: Present: normal accommodation - ENT ENT exam: Present: normal exam, normal orophraynx, mucous membranes moist, TM's normal bilaterally, normal external ear exam - Neck Neck exam: Present: normal inspection, full ROM - Respiratory Respiratory exam: Present: normal lung sounds bilaterally. Absent: respiratory distress, wheezes, rales, rhonchi, chest wall tenderness, accessory muscle use, decreased breath sounds, prolonged expiratory - Cardiovascular Cardiovascular Exam: Present: normal rhythm, tachycardia, normal heart sounds. Absent: systolic murmur, diastolic murmur, rubs, gallop - GI/Abdominal GI/Abdominal exam: Present: soft, normal bowel sounds. Absent: tenderness, guarding, rebound, hyperactive bowel sounds, hypoactive bowel sounds, organomegaly - Extremities Exam Extremities exam: Present: normal inspection, full ROM, normal capillary refill - Back Exam Back exam: Present: normal inspection, full ROM. Absent: tenderness, CVA tenderness (R), CVA tenderness (L), muscle spasm, paraspinal tenderness, vertebral tenderness - Neurological Exam Neurological exam: Present: alert, oriented X3, CN II-XII intact, normal gait, reflexes normal - Psychiatric Psychiatric exam: Present: normal affect, normal mood, anxious - Skin Skin exam: Present: warm, dry, intact, normal color. Absent: rash ED Course Vital Signs 07/29/21 02:04 Temperature 98.9 F Pulse Rate 108 H Respiratory 18 Rate Blood Pressure 132/83 O2 Sat by Pulse 99 Oximetry ED Medical Decision Making - Lab Data Result diagrams: 07/29/21 03:01 07/29/21 03:01 - Differential Diagnosis lightheadedness; dizziness; dehydration; Critical care attestation.: If time is entered above; I have spent that time in minutes in the direct care of this critically ill patient, excluding procedure time. ED Disposition Clinical Impression: Dizziness, nonspecific, Positional lightheadedness, Anxiety as acute reaction to exceptional stress Disposition: 01 HOME / SELF CARE / HOMELESS Is pt being admited?: No Does the pt Need Aspirin: No Condition: Stable Instructions: Near-Syncope, [id number], Dizziness, [id number] Additional Instructions: All lab test results were reviewed and are all nonactionable. Therefore drink plenty of fluids and follow-up with your primary care physician in 7 to 10 days for reevaluation. Return to the ED immediately if symptoms get worse. Referrals: [facility] [Provider Group] - 3-5 Days Time of Disposition: 05:42 Print Language: [place]
[2021-07-29 06:09] VITALS: BP 113/75
== END 2021-07-29 06:37 | disposition home or self-care (01) ==
LOC: ED 01:54
DX: R42 Dizziness and giddiness (principal); F43.0 Acute stress reaction; F41.9 Anxiety disorder, unspecified
CPT/HCPCS: 36415; 80053; 81001; 84703; 85025; 96360; 96361; 99283